=== PATIENT | female | born 1980 | race Caucasian/White ===

== ENCOUNTER 2024-01-26 22:34 | Emergency (ER) | payer BC ==
[2024-01-26 23:35] VITALS: BP 152/94
[2024-01-26] MEDS ORDERED: ALBUTEROL SULFATE 2.5 MG VIAL IN ONE (23:40)
[2024-01-26 23:45] VITALS: BP 148/82
[2024-01-26] MEDS ORDERED: SODIUM CHLORIDE 0.9% 1,000 ML IV ONE (23:45)
[2024-01-26] MEDS ORDERED: MAGNESIUM SULFATE 50% 1 GM/2 ML IV ONE (23:45)
[2024-01-26] MEDS ORDERED: TERBUTALINE SULFATE 1 MG/VIAL SDV SC ONE (23:45)
[2024-01-26] MEDS ORDERED: DEXAMETHASONE SOD. PHOSPHATE 10 MG/ML VIAL IV ONE (23:45)
[2024-01-26] MEDS ORDERED: VENTOLIN HFA108 MCG (23:48)
[2024-01-27] MEDS ORDERED: MAGNESIUM SULFATE HEPTAHYDRATE 50 ML IV ONE (00:10)
[2024-01-27 00:16] VITALS: BP 145/65
[2024-01-27 00:30] LABS: BASO% 0.3 % (0-3); EOS% 24.6 % (0-8); HEMATOCRIT 40.7 % (37.0-47.0); HEMOGLOBIN 12.8 g/dl (12.0-16.0); IMMATURE GRANULOCYTES 0.2 % (0.0-5.0); LYMPH% 9.9 % (15-41); MEAN CELL VOLUME 94.2 fL CALC (80.0-100.0); MEAN CORPUSCULAR HGB 29.6 pG CALC (26.0-32.0); MEAN CORPUSCULAR HGB CONC 31.4 g/dL CAL (32.0-36.0); MONO% 5.2 % (2-13); NEUT# 6.98 thou/uL (2.00-7.15); NEUT% 59.8 % (42-76); RED BLOOD COUNT 4.32 mill/uL (4.20-5.60); RED CELL DISTRI WIDTH 14.7 % (11.5-15.5)
[2024-01-27 00:43] LABS: ALBUMIN 3.7 g/dL (3.2-5.0); ALKALINE PHOSPHATASE 136 u/l (38-126); ANION GAP 13 (6-22 (CALC)); BILIRUBIN, TOTAL 0.4 mg/dL (0.02-1.3); BUN 7 mg/dL (7-17); BUN/CREATININE RATIO 12 (12-20 (CALC)); CARBON DIOXIDE 22 mmol/l (22-30); CHLORIDE 109 mmol/l (95-108); CREATININE 0.6 mg/dL (0.5-1.0); ESTIMATED GFR 113 ML/MIN (>=90 (CALC)); POTASSIUM 3.7 mmol/l (3.5-5.1); SGOT/AST 22 u/l (14-36); SODIUM 140 mmol/l (137-146)
[2024-01-27 01:01] VITALS: BP 156/81
[2024-01-27 01:31] VITALS: BP 140/64
[2024-01-27 02:01] VITALS: BP 137/75
[2024-01-27] MEDS ORDERED: PROVENTIL0.083 % IN ×2 (03:21→03:38)
[2024-01-27] MEDS ORDERED: DEXAMETHASON6 MG PO ×2 (03:21→03:38)
[2024-01-27] MEDS ORDERED: VENTOLIN HFA108 MCG PO ×2 (03:21→03:38)
[2024-01-27 03:38] VITALS: BP 137/75
== END 2024-01-27 03:38 | disposition home or self-care (01) | DRG 203 ==
LOC: ED 22:34
PROVIDERS: Emergency Medicine
DX: J45.901 Unspecified asthma with (acute) exacerbation (principal)
CPT/HCPCS: J3475